=== PATIENT | male | born 1965 | race Caucasian/White ===

== ENCOUNTER → 2023-04-16 | Emergency (ER) | payer OTHER ==
[~2023-04-16] MED LIST: KETOROLAC 30 MG/ML INJ ONE; methocarbamoL 750 MG TAB ONE
--- OUTSIDE RECORDS SUMMARY | 2023-04-16 09:07 | XMS REPORT | Continuity of Care Document ---
Author Name Unknown Address [address] [facility] [address] [place] [address] [facility] thconnect Address [address] [facility] 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 Role Phone Carmen Avila Primary Care Physician DENISE HARDING Attending Clinician Unavaila Carmen Kapadia Attending Clinician [phone] Doctor Unassigned, [place] Attending Clinician U philipp LANDRUMWZenaida Attending Clinician [phone] Lab, Ang - Db Attending Clinician Unavailable CARMEN ARRIAGA Attending Clinician Unavailable Aurora Diaz Attending Clinician Denise Grace Attending Clinician AURORA RENEE Attending Clinician Unavailhunter Pascual, Adc Lab Main Attending Clinician UnavailVikash Allen MD Attending Clinician [phone] VIKASH MOONEY Attending Clinician Unavailable NICK RODRIGUEZ Attending Clinician Unavailable LIZZIE BECERRIL Attending Clinician Unavaila Ronny Pickett MD Attending Clinician [phone] SALBADOR NGUYEN Attending Clinician Unavail able Nurse, Adc Pob Immunization Attending Clinician Unavailable Salbador Nguyen DO Attending Clinician MERLYN HWANG Attending Clinician UnavailSHERLEY Nagel Attending Clinician Unavailable Sherley Cameron DO Attending Clinician [phone] Lab, Adc Fam Pob I Attending Clinician Unavailab Sarah Riley PA-C Attending Clinician [phone], Nancy [employer] Attending Clinician Chastity gerard Sun PHD, Erika Menchaca Attending Clinician ERIKA SUN Attending Clinician Unavailab MIRLANDE Lawson Attending Clinician Unavailable HENRIETTA COBB Attending Clinician Unavailable Henrietta Myers Attending Clinician [phone] VIKASH MOONEY Admitting Clinician Unavailable Payers Payer Name Policy Type Policy Number Effective Date Expirati on Date Source [facility] [id number] 2017 00:00:00 Problems Condition Name Condition Details Condition Category Status Onset Date Resolution Date Last Treatment Date Treating Clinician Comments Source CKD (chronic kidney disease), stage III CKD (chronic kidney disease), stage III Disease Active 05-28 00:00: 00 [facility] Acquired hypothyroi dism Acquired hypothyroi dism Disease Active 09-07 00:00: 00 [facility] Mixed hyperlipid emia Mixed hyperlipid emia Disease Active 09-07 00:00: 00 [facility] Elevated serum creatinine Elevated serum creatinine Disease Active 04-07 00:00: 00 [facility] Essential hypertensi on Essential hypertensi on Disease Active 04-01 00:00: 00 [facility] Allergies, Adverse Reactions, Alerts Allergy Name Allergy Type Status Severity Reaction(s) Onset Date Inactive Date Treating Clinician Comments Source MORPHINE DRUG INGREDI Active Unknown-Cmnt 10-29 00:00: 00 [facility] Morphine Propensi ty to adverse reaction s Active Unknown - See comments 10-29 00:00: 00 Pt reports it almost killed him when he was a baby [facility] Social History Social Habit Start Date Stop Date Quantity Comments Source Gender identity [facility] of tobacco use Snuff User [facility] Alcohol intake 2022-12-23 00:00:00 2022-12-23 00:00:00 .57 /d [facility] History of Social function 2022-11-17 00:00:00 2022-11-17 00:00:00 [facility] Exposure to SARS-CoV-2 (event) 2022-05-01 00:00:00 2022-05-11 07:01:00 Not sure [facility] Tobacco use and exposure 2021-10-16 00:00:00 2021-10-16 00:00:00 Former smokeless tobacco user [facility] Sex Assigned At 1965 00:00:00 1965 00:00:00 [facility] Smoking Status Start Date Stop Date Source Never smoked tobacco [facility] Medications Ordered Medication Name Filled Medication Name Start Date Stop Date Current Medication? Ordering Clinician Indication Dosage Frequency Signature (SIG) Comments Components Source amLODIPine 10 mg tablet 12-23 00:00: 00 Yes [id number] 10mg Take 1 tablet by mouth in the morning. [facility] levothyroxi ne 50 mcg tablet 12-23 00:00: 00 Yes [id number] 50ug Take 1 tablet by mouth every morning. [facility] hydroCHLORO thiazide 25 mg tablet 12-23 00:00: 00 Yes [id number] 25mg Take 1 tablet by mouth every morning. [facility] amLODIPine 10 mg tablet 12-23 00:00: 00 Yes [id number] 10mg Take 1 tablet by mouth in the morning. [facility] levothyroxi ne 50 mcg tablet 12-23 00:00: 00 Yes [id number] 50ug Take 1 tablet by mouth every morning. [facility] hydroCHLORO thiazide 25 mg tablet 12-23 00:00: 00 Yes [id number] 25mg Take 1 tablet by mouth every morning. [facility] amLODIPine 10 mg tablet 12-23 00:00: 00 Yes [id number] 10mg Take 1 tablet by mouth in the morning. [facility] levothyroxi ne 50 mcg tablet 12-23 00:00: 00 Yes [id number] 50ug Take 1 tablet by mouth every morning. [facility] hydroCHLORO thiazide 25 mg tablet 12-23 00:00: 00 Yes [id number] 25mg Take 1 tablet by mouth every morning. [facility] amLODIPine 10 mg tablet 12-23 00:00: 00 Yes [id number] 10mg Take 1 tablet by mouth in the morning. [facility] levothyroxi ne 50 mcg tablet 12-23 00:00: 00 Yes [id number] 50ug Take 1 tablet by mouth every morning. [facility] hydroCHLORO thiazide 25 mg tablet 12-23 00:00: 00 Yes [id number] 25mg Take 1 tablet by mouth every morning. [facility] amLODIPine 10 mg tablet 12-23 00:00: 00 Yes [id number] 10mg Take 1 tablet by mouth in the morning. [facility] levothyroxi ne 50 mcg tablet 12-23 00:00: 00 Yes [id number] 50ug Take 1 tablet by mouth every morning. [facility] hydroCHLORO thiazide 25 mg tablet 12-23 00:00: 00 Yes [id number] 25mg Take 1 tablet by mouth every morning. [facility] amLODIPine 10 mg tablet 12-23 00:00: 00 Yes [id number] 10mg Take 1 tablet by mouth in the morning. [facility] levothyroxi ne 50 mcg tablet 12-23 00:00: 00 Yes [id number] 50ug Take 1 tablet by mouth every morning. [facility] hydroCHLORO thiazide 25 mg tablet 12-23 00:00: 00 Yes [id number] 25mg Take 1 tablet by mouth every morning. [facility] amLODIPine 10 mg tablet 12-23 00:00: 00 Yes [id number] 10mg Take 1 tablet by mouth in the morning. [facility] levothyroxi ne 50 mcg tablet 12-23 00:00: 00 Yes [id number] 50ug Take 1 tablet by mouth every morning. [facility] hydroCHLORO thiazide 25 mg tablet 12-23 00:00: 00 Yes [id number] 25mg Take 1 tablet by mouth every morning. [facility] amLODIPine 10 mg tablet 12-23 00:00: 00 Yes [id number] 10mg Take 1 tablet by mouth in the morning. [facility] levothyroxi ne 50 mcg tablet 12-23 00:00: 00 Yes [id number] 50ug Take 1 tablet by mouth every morning. [facility] hydroCHLORO thiazide 25 mg tablet 12-23 00:00: 00 Yes [id number] 25mg Take 1 tablet by mouth every morning. [facility] amLODIPine 10 mg tablet 12-23 00:00: 00 Yes [id number] 10mg Take 1 tablet by mouth in the morning. [facility] levothyroxi ne 50 mcg tablet 12-23 00:00: 00 Yes [id number] 50ug Take 1 tablet by mouth every morning. [facility] hydroCHLORO thiazide 25 mg tablet 12-23 00:00: 00 Yes [id number] 25mg Take 1 tablet by mouth every morning. [facility] amLODIPine 10 mg tablet 11-23 00:00: 00 Yes [id number] 10mg Take 1 tablet by mouth in the morning. [facility] amLODIPine 10 mg tablet 11-23 00:00: 00 Yes [id number] 10mg Take 1 tablet by mouth in the morning. [facility] amLODIPine 10 mg tablet 11-23 00:00: 00 Yes [id number] 10mg Take 1 tablet by mouth in the morning. [facility] amLODIPine 10 mg tablet 11-23 00:00: 00 12-23 00:00 :00 No [id number] 10mg Take 1 tablet by mouth in the morning. [facility] amLODIPine 10 mg tablet 2023-0 8-28 00:00: 00 12-23 00:00 :00 No [id number] 10mg Take 1 tablet by mouth in the morning. [facility] hydroCHLORO thiazide 25 mg tablet 2022-0 8-18 00:00: 00 Yes [id number] 25mg TAKE 1 TABLET BY MOUTH EVERY MORNING [facility] hydroCHLORO thiazide 25 mg tablet 2022-0 8-18 00:00: 00 Yes [id number] 25mg TAKE 1 TABLET BY MOUTH EVERY MORNING [facility] hydroCHLORO thiazide 25 mg tablet 2022-0 8-18 00:00: 00 Yes [id number] 25mg TAKE 1 TABLET BY MOUTH EVERY MORNING [facility] hydroCHLORO thiazide 25 mg tablet 2022-0 8-18 00:00: 00 Yes [id number] 25mg TAKE 1 TABLET BY MOUTH EVERY MORNING [facility] hydroCHLORO thiazide 25 mg tablet 2022-0 8-18 00:00: 00 Yes [id number] 25mg TAKE 1 TABLET BY MOUTH EVERY MORNING [facility] hydroCHLORO thiazide 25 mg tablet 2022-0 8-18 00:00: 00 Yes [id number] 25mg TAKE 1 TABLET BY MOUTH EVERY MORNING [facility] hydroCHLORO thiazide 25 mg tablet 2022-0 8-18 00:00: 00 12-23 00:00 :00 No [id number] 25mg TAKE 1 TABLET BY MOUTH EVERY MORNING [facility] hydroCHLORO thiazide 25 mg tablet 2022-0 8-18 00:00: 00 12-23 00:00 :00 No [id number] 25mg TAKE 1 TABLET BY MOUTH EVERY MORNING [facility] AMLODIPINE 10 mg tablet 2022-0 7-16 00:00: 00 Yes [id number] 10mg TAKE 1 TABLET BY MOUTH IN THE MORNING. [facility] AMLODIPINE 10 mg tablet 2022-0 7-16 00:00: 00 Yes [id number] 10mg TAKE 1 TABLET BY MOUTH IN THE MORNING. [facility] AMLODIPINE 10 mg tablet 2022-0 7-16 00:00: 00 Yes [id number] 10mg TAKE 1 TABLET BY MOUTH IN THE MORNING. [facility] AMLODIPINE 10 mg tablet 2023-0 7-16 00:00: 00 Yes [id number] 10mg TAKE 1 TABLET BY MOUTH IN THE MORNING. [facility] AMLODIPINE 10 mg tablet 3-0 7-16 00:00: 00 Yes [id number] 10mg TAKE 1 TABLET BY MOUTH IN THE MORNING. [facility] AMLODIPINE 10 mg tablet 2022-0 7-16 00:00: 00 Yes [id number] 10mg TAKE 1 TABLET BY MOUTH IN THE MORNING. [facility] AMLODIPINE 10 mg tablet 2022-0 7-16 00:00: 00 28 00:00 :00 No [id number] 10mg TAKE 1 TABLET BY MOUTH IN THE MORNING. [facility] hydroCHLORO thiazide 25 mg tablet 2022-0 2-13 00:00: 00 Yes [id number] 25mg Take 1 tablet by mouth in the morning. [facility] hydroCHLORO thiazide 25 mg tablet 3-0 2-13 00:00: 00 Yes [id number] 25mg Take 1 tablet by mouth in the morning. [facility] hydroCHLORO thiazide 25 mg tablet 3-0 2-13 00:00: 00 Yes [id number] 25mg Take 1 tablet by mouth in the morning. [facility] hydroCHLORO thiazide 25 mg tablet 3-0 2-13 00:00: 00 Yes [id number] 25mg Take 1 tablet by mouth in the morning. [facility] hydroCHLORO thiazide 25 mg tablet 3-0 2-13 00:00: 00 Yes [id number] 25mg Take 1 tablet by mouth in the morning. [facility] hydroCHLORO thiazide 25 mg tablet 3-0 2-13 00:00: 00 Yes [id number] 25mg Take 1 tablet by mouth in the morning. [facility] hydroCHLORO thiazide 25 mg tablet 3-0 2-13 00:00: 00 Yes [id number] 25mg Take 1 tablet by mouth in the morning. [facility] hydroCHLORO thiazide 25 mg tablet 3-0 2-13 00:00: 00 Yes [id number] 25mg Take 1 tablet by mouth in the morning. [facility] hydroCHLORO thiazide 25 mg tablet 2023-0 2-13 00:00: 00 18 00:00 :00 No [id number] 25mg Take 1 tablet by mouth in the morning. [facility] amLODIPine 10 mg tablet 2021-03 00:00: 00 Yes [id number] 10mg Take 1 tablet by mouth in the morning. [facility] levothyroxi ne 50 mcg tablet 2021-03 00:00: 00 Yes [id number] 50ug Take 1 tablet by mouth every morning. [facility] Blood Pressure Monitor (BLOOD PRESSURE KIT) Kit 2021-03 00:00: 00 Yes [id number] Take BP 1-2 times daily and log. [facility] Omeprazole 20 mg tablet 2021-03 00:00: 00 Yes [id number] 20mg Take 1 tablet by mouth in the morning. [facility] amLODIPine 10 mg tablet 2021-03 00:00: 00 Yes [id number] 10mg Take 1 tablet by mouth in the morning. [facility] levothyroxi ne 50 mcg tablet 2021-03 00:00: 00 Yes [id number] 50ug Take 1 tablet by mouth every morning. [facility] Blood Pressure Monitor (BLOOD PRESSURE KIT) Kit 2021-03 00:00: 00 Yes [id number] Take BP 1-2 times daily and log. [facility] Omeprazole 20 mg tablet 2021-03 00:00: 00 Yes [id number] 20mg Take 1 tablet by mouth in the morning. [facility] amLODIPine 10 mg tablet 2021-03 00:00: 00 Yes [id number] 10mg Take 1 tablet by mouth in the morning. [facility] levothyroxi ne 50 mcg tablet 2021-03 00:00: 00 Yes [id number] 50ug Take 1 tablet by mouth every morning. [facility] Blood Pressure Monitor (BLOOD PRESSURE KIT) Kit 2021-03 00:00: 00 Yes [id number] Take BP 1-2 times daily and log. [facility] Omeprazole 20 mg tablet 2021-03 00:00: 00 Yes [id number] 20mg Take 1 tablet by mouth in the morning. [facility] amLODIPine 10 mg tablet 2021-03 00:00: 00 Yes [id number] 10mg Take 1 tablet by mouth in the morning. [facility] levothyroxi ne 50 mcg tablet 2021-03 00:00: 00 Yes [id number] 50ug Take 1 tablet by mouth every morning. [facility] Blood Pressure Monitor (BLOOD PRESSURE KIT) Kit 2021-03 00:00: 00 Yes [id number] Take BP 1-2 times daily and log. [facility] Omeprazole 20 mg tablet 2021-03 00:00: 00 Yes [id number] 20mg Take 1 tablet by mouth in the morning. [facility] amLODIPine 10 mg tablet 2021-03 00:00: 00 Yes [id number] 10mg Take 1 tablet by mouth in the morning. [facility] levothyroxi ne 50 mcg tablet 2021-03 00:00: 00 Yes [id number] 50ug Take 1 tablet by mouth every morning. [facility] Blood Pressure Monitor (BLOOD PRESSURE KIT) Kit 2021-03 00:00: 00 Yes [id number] Take BP 1-2 times daily and log. [facility] Omeprazole 20 mg tablet 2021-03 00:00: 00 Yes [id number] 20mg Take 1 tablet by mouth in the morning. [facility] amLODIPine 10 mg tablet 2021-03 00:00: 00 Yes [id number] 10mg Take 1 tablet by mouth in the morning. [facility] levothyroxi ne 50 mcg tablet 2021-03 00:00: 00 Yes [id number] 50ug Take 1 tablet by mouth every morning. [facility] Blood Pressure Monitor (BLOOD PRESSURE KIT) Kit 2021-03 00:00: 00 Yes [id number] Take BP 1-2 times daily and log. [facility] Omeprazole 20 mg tablet 2021-03 00:00: 00 Yes [id number] 20mg Take 1 tablet by mouth in the morning. [facility] amLODIPine 10 mg tablet 2021-03 00:00: 00 Yes [id number] 10mg Take 1 tablet by mouth in the morning. [facility] levothyroxi ne 50 mcg tablet 2021-03 00:00: 00 Yes [id number] 50ug Take 1 tablet by mouth every morning. [facility] Blood Pressure Monitor (BLOOD PRESSURE KIT) Kit 2021-03 00:00: 00 Yes [id number] Take BP 1-2 times daily and log. [facility] Omeprazole 20 mg tablet 2021-03 00:00: 00 Yes [id number] 20mg Take 1 tablet by mouth in the morning. [facility] amLODIPine 10 mg tablet 2021-03 00:00: 00 Yes [id number] 10mg Take 1 tablet by mouth in the morning. [facility] levothyroxi ne 50 mcg tablet 2021-03 00:00: 00 Yes [id number] 50ug Take 1 tablet by mouth every morning. [facility] Blood Pressure Monitor (BLOOD PRESSURE KIT) Kit 2021-03 00:00: 00 Yes [id number] Take BP 1-2 times daily and log. [facility] Omeprazole 20 mg tablet 2021-03 00:00: 00 Yes [id number] 20mg Take 1 tablet by mouth in the morning. [facility] amLODIPine 10 mg tablet 2021-03 00:00: 00 Yes [id number] 10mg Take 1 tablet by mouth in the morning. [facility] levothyroxi ne 50 mcg tablet 2021-03 00:00: 00 Yes [id number] 50ug Take 1 tablet by mouth every morning. [facility] Blood Pressure Monitor (BLOOD PRESSURE KIT) Kit 2021-03 00:00: 00 Yes [id number] Take BP 1-2 times daily and log. [facility] Omeprazole 20 mg tablet 2021-03 00:00: 00 Yes [id number] 20mg Take 1 tablet by mouth in the morning. [facility] amLODIPine 10 mg tablet 2021-03 00:00: 00 Yes [id number] 10mg Take 1 tablet by mouth in the morning. [facility] levothyroxi ne 50 mcg tablet 2021-03 00:00: 00 Yes [id number] 50ug Take 1 tablet by mouth every morning. [facility] Blood Pressure Monitor (BLOOD PRESSURE KIT) Kit 2021-03 00:00: 00 Yes [id number] Take BP 1-2 times daily and log. [facility] Omeprazole 20 mg tablet 2021-03 00:00: 00 Yes [id number] 20mg Take 1 tablet by mouth in the morning. [facility] amLODIPine 10 mg tablet 2021-03 00:00: 00 Yes [id number] 10mg Take 1 tablet by mouth in the morning. [facility] levothyroxi ne 50 mcg tablet 2021-03 00:00: 00 Yes [id number] 50ug Take 1 tablet by mouth every morning. [facility] Blood Pressure Monitor (BLOOD PRESSURE KIT) Kit 2021-03 00:00: 00 Yes [id number] Take BP 1-2 times daily and log. [facility] Omeprazole 20 mg tablet 2021-03 00:00: 00 Yes [id number] 20mg Take 1 tablet by mouth in the morning. [facility] levothyroxi ne 50 mcg tablet 2021-03 00:00: 00 Yes [id number] 50ug Take 1 tablet by mouth every morning. [facility] Blood Pressure Monitor (BLOOD PRESSURE KIT) Kit 2021-03 00:00: 00 Yes [id number] Take BP 1-2 times daily and log. [facility] Omeprazole 20 mg tablet 2021-03 00:00: 00 Yes [id number] 20mg Take 1 tablet by mouth in the morning. [facility] levothyroxi ne 50 mcg tablet 2021-03 00:00: 00 Yes [id number] 50ug Take 1 tablet by mouth every morning. [facility] Blood Pressure Monitor (BLOOD PRESSURE KIT) Kit 2021-03 00:00: 00 Yes [id number] Take BP 1-2 times daily and log. [facility] Omeprazole 20 mg tablet 2021-03 00:00: 00 Yes [id number] 20mg Take 1 tablet by mouth in the morning. [facility] levothyroxi ne 50 mcg tablet 2021-03 00:00: 00 Yes [id number] 50ug Take 1 tablet by mouth every morning. [facility] Blood Pressure Monitor (BLOOD PRESSURE KIT) Kit 2021-03 00:00: 00 Yes [id number] Take BP 1-2 times daily and log. [facility] Omeprazole 20 mg tablet 2021-03 00:00: 00 Yes [id number] 20mg Take 1 tablet by mouth in the morning. [facility] levothyroxi ne 50 mcg tablet 2021-03 00:00: 00 Yes [id number] 50ug Take 1 tablet by mouth every morning. [facility] Blood Pressure Monitor (BLOOD PRESSURE KIT) Kit 2021-03 00:00: 00 Yes [id number] Take BP 1-2 times daily and log. [facility] Omeprazole 20 mg tablet 2021-03 00:00: 00 Yes [id number] 20mg Take 1 tablet by mouth in the morning. [facility] levothyroxi ne 50 mcg tablet 2021-03 00:00: 00 Yes [id number] 50ug Take 1 tablet by mouth every morning. [facility] Blood Pressure Monitor (BLOOD PRESSURE KIT) Kit 2021-03 00:00: 00 Yes [id number] Take BP 1-2 times daily and log. [facility] Omeprazole 20 mg tablet 2021-03 00:00: 00 Yes [id number] 20mg Take 1 tablet by mouth in the morning. [facility] levothyroxi ne 50 mcg tablet 2021-03 00:00: 00 Yes [id number] 50ug Take 1 tablet by mouth every morning. [facility] Blood Pressure Monitor (BLOOD PRESSURE KIT) Kit 2021-03 00:00: 00 Yes [id number] Take BP 1-2 times daily and log. [facility] Omeprazole 20 mg tablet 2021-03 00:00: 00 Yes [id number] 20mg Take 1 tablet by mouth in the morning. [facility] levothyroxi ne 50 mcg tablet 2021-03 00:00: 00 Yes [id number] 50ug Take 1 tablet by mouth every morning. [facility] Blood Pressure Monitor (BLOOD PRESSURE KIT) Kit 2021-03 00:00: 00 Yes [id number] Take BP 1-2 times daily and log. [facility] Omeprazole 20 mg tablet 2021-03 00:00: 00 Yes [id number] 20mg Take 1 tablet by mouth in the morning. [facility] levothyroxi ne 50 mcg tablet 2021-03 00:00: 00 Yes [id number] 50ug Take 1 tablet by mouth every morning. [facility] Blood Pressure Monitor (BLOOD PRESSURE KIT) Kit 2021-03 00:00: 00 Yes [id number] Take BP 1-2 times daily and log. [facility] Omeprazole 20 mg tablet 2021-03 00:00: 00 Yes [id number] 20mg Take 1 tablet by mouth in the morning. [facility] levothyroxi ne 50 mcg tablet 2021-03 00:00: 00 Yes [id number] 50ug Take 1 tablet by mouth every morning. [facility] Blood Pressure Monitor (BLOOD PRESSURE KIT) Kit 2021-03 00:00: 00 Yes [id number] Take BP 1-2 times daily and log. [facility] Omeprazole 20 mg tablet 2021-03 00:00: 00 Yes [id number] 20mg Take 1 tablet by mouth in the morning. [facility] Blood Pressure Monitor (BLOOD PRESSURE KIT) Kit 2021-03 00:00: 00 Yes [id number] Take BP 1-2 times daily and log. [facility] Omeprazole 20 mg tablet 2021-03 00:00: 00 Yes [id number] 20mg Take 1 tablet by mouth in the morning. [facility] Blood Pressure Monitor (BLOOD PRESSURE KIT) Kit 2021-03 00:00: 00 Yes [id number] Take BP 1-2 times daily and log. [facility] Omeprazole 20 mg tablet 2021-03 00:00: 00 Yes [id number] 20mg Take 1 tablet by mouth in the morning. [facility] Blood Pressure Monitor (BLOOD PRESSURE KIT) Kit 2021-03 00:00: 00 Yes [id number] Take BP 1-2 times daily and log. [facility] Omeprazole 20 mg tablet 2021-03 00:00: 00 Yes [id number] 20mg Take 1 tablet by mouth in the morning. [facility] Blood Pressure Monitor (BLOOD PRESSURE KIT) Kit 2021-03 00:00: 00 Yes [id number] Take BP 1-2 times daily and log. [facility] Omeprazole 20 mg tablet 2021-03 00:00: 00 Yes [id number] 20mg Take 1 tablet by mouth in the morning. [facility] Blood Pressure Monitor (BLOOD PRESSURE KIT) Kit 2021-03 00:00: 00 Yes [id number] Take BP 1-2 times daily and log. [facility] Omeprazole 20 mg tablet 2021-03 00:00: 00 Yes [id number] 20mg Take 1 tablet by mouth in the morning. [facility] Blood Pressure Monitor (BLOOD PRESSURE KIT) Kit 2021-03 00:00: 00 Yes [id number] Take BP 1-2 times daily and log. [facility] Omeprazole 20 mg tablet 2021-03 00:00: 00 Yes [id number] 20mg Take 1 tablet by mouth in the morning. [facility] Blood Pressure Monitor (BLOOD PRESSURE KIT) Kit 2021-03 00:00: 00 Yes [id number] Take BP 1-2 times daily and log. [facility] Omeprazole 20 mg tablet 2021-03 00:00: 00 Yes [id number] 20mg Take 1 tablet by mouth in the morning. [facility] Blood Pressure Monitor (BLOOD PRESSURE KIT) Kit 2021-03 00:00: 00 Yes [id number] Take BP 1-2 times daily and log. [facility] Omeprazole 20 mg tablet 2021-03 00:00: 00 Yes [id number] 20mg Take 1 tablet by mouth in the morning. [facility] Blood Pressure Monitor (BLOOD PRESSURE KIT) Kit 2021-03 00:00: 00 Yes [id number] Take BP 1-2 times daily and log. [facility] Omeprazole 20 mg tablet 2021-03 00:00: 00 Yes [id number] 20mg Take 1 tablet by mouth in the morning. [facility] Blood Pressure Monitor (BLOOD PRESSURE KIT) Kit 2021-03 00:00: 00 Yes [id number] Take BP 1-2 times daily and log. [facility] Omeprazole 20 mg tablet 2021-03 00:00: 00 Yes [id number] 20mg Take 1 tablet by mouth in the morning. [facility] Blood Pressure Monitor (BLOOD PRESSURE KIT) Kit 2021-03 00:00: 00 Yes [id number] Take BP 1-2 times daily and log. [facility] Omeprazole 20 mg tablet 2021-03 00:00: 00 Yes [id number] 20mg Take 1 tablet by mouth in the morning. [facility] Blood Pressure Monitor (BLOOD PRESSURE KIT) Kit 2021-03 00:00: 00 Yes [id number] Take BP 1-2 times daily and log. [facility] Omeprazole 20 mg tablet 2021-03 00:00: 00 Yes [id number] 20mg Take 1 tablet by mouth in the morning. [facility] levothyroxi ne 50 mcg tablet 2021-03 00:00: 00 12-23 00:00 :00 No [id number] 50ug Take 1 tablet by mouth every morning. [facility] levothyroxi ne 50 mcg tablet 2021-03 00:00: 00 12-23 00:00 :00 No [id number] 50ug Take 1 tablet by mouth every morning. [facility] amLODIPine 10 mg tablet 2021-03 00:00: 00 10-11 00:00 :00 No [id number] 10mg Take 1 tablet by mouth in the morning. [facility] amLODIPine 10 mg tablet 2021-03 00:00: 00 10-11 00:00 :00 No [id number] 10mg Take 1 tablet by mouth in the morning. [facility] amLODIPine 10 mg tablet 2021-03 00:00: 00 10-11 00:00 :00 No [id number] 10mg Take 1 tablet by mouth in the morning. [facility] levothyroxi ne 50 mcg tablet 10-16 00:00: 00 Yes [id number] 50ug Take 1 tablet by mouth every morning. [facility] amLODIPine 10 mg tablet 10-16 00:00: 00 Yes [id number] 10mg Take 1 tablet by mouth in the morning. [facility] levothyroxi ne 50 mcg tablet 10-16 00:00: 00 Yes [id number] 50ug Take 1 tablet by mouth every morning. [facility] amLODIPine 10 mg tablet 10-16 00:00: 00 Yes [id number] 10mg Take 1 tablet by mouth in the morning. [facility] levothyroxi ne 50 mcg tablet 10-16 00:00: 00 02-12 00:00 :00 No [id number] 50ug Take 1 tablet by mouth every morning. [facility] amLODIPine 10 mg tablet 10-16 00:00: 00 02-12 00:00 :00 No [id number] 10mg Take 1 tablet by mouth in the morning. [facility] levothyroxi ne 50 mcg tablet 10-16 00:00: 00 02-12 00:00 :00 No [id number] 50ug Take 1 tablet by mouth every morning. [facility] amLODIPine 10 mg tablet 2021-0 7-21 00:00: 00 02-12 00:00 :00 No [id number] 10mg Take 1 tablet by mouth in the morning. [facility] Immunizations Ordered Immunization Name Filled Immunization Name Date Status Comments Source SARS-COV-2 COVID-19 PFIZER VACCINE 2021-02-28 00:00:00 Completed [facility] SARS-COV-2 COVID-19 PFIZER VACCINE 2021-02-28 00:00:00 Completed [facility] SARS-COV-2 COVID-19 PFIZER VACCINE 2021-02-28 00:00:00 Completed [facility] SARS-COV-2 COVID-19 PFIZER VACCINE 2021-02-28 00:00:00 Completed [facility] SARS-COV-2 COVID-19 PFIZER VACCINE 2021-02-28 00:00:00 Completed [facility] SARS-COV-2 COVID-19 PFIZER VACCINE 2021-02-28 00:00:00 Completed [facility] SARS-COV-2 COVID-19 PFIZER VACCINE 2021-02-28 00:00:00 Completed [facility] SARS-COV-2 COVID-19 PFIZER VACCINE 2021-02-28 00:00:00 Completed [facility] SARS-COV-2 COVID-19 PFIZER VACCINE 2021-02-28 00:00:00 Completed [facility] SARS-COV-2 COVID-19 PFIZER VACCINE 2021-02-28 00:00:00 Completed [facility] SARS-COV-2 COVID-19 PFIZER VACCINE 2021-02-28 00:00:00 Completed [facility] SARS-COV-2 COVID-19 PFIZER VACCINE 2021-02-28 00:00:00 Completed [facility] SARS-COV-2 COVID-19 PFIZER VACCINE 2021-02-28 00:00:00 Completed [facility] SARS-COV-2 COVID-19 PFIZER VACCINE 2021-02-28 00:00:00 Completed [facility] SARS-COV-2 COVID-19 PFIZER VACCINE 2021-02-28 00:00:00 Completed [facility] SARS-COV-2 COVID-19 PFIZER VACCINE 2021-02-28 00:00:00 Completed [facility] SARS-COV-2 COVID-19 PFIZER VACCINE 2021-02-28 00:00:00 Completed [facility] SARS-COV-2 COVID-19 PFIZER VACCINE 2021-02-28 00:00:00 Completed [facility] SARS-COV-2 COVID-19 PFIZER VACCINE 2021-02-28 00:00:00 Completed [facility] SARS-COV-2 COVID-19 PFIZER VACCINE 2021-02-28 00:00:00 Completed [facility] SARS-COV-2 COVID-19 PFIZER VACCINE 2021-02-28 00:00:00 Completed [facility] SARS-COV-2 COVID-19 PFIZER VACCINE 2021-02-28 00:00:00 Completed [facility] SARS-COV-2 COVID-19 PFIZER VACCINE 2020-07-05 00:00:00 Completed [facility] SARS-COV-2 COVID-19 PFIZER VACCINE 2020-07-05 00:00:00 Completed [facility] SARS-COV-2 COVID-19 PFIZER VACCINE 2020-07-05 00:00:00 Completed [facility] SARS-COV-2 COVID-19 PFIZER VACCINE 2020-07-05 00:00:00 Completed [facility] SARS-COV-2 COVID-19 PFIZER VACCINE 2020-07-05 00:00:00 Completed [facility] SARS-COV-2 COVID-19 PFIZER VACCINE 2020-07-05 00:00:00 Completed [facility] SARS-COV-2 COVID-19 PFIZER VACCINE 2020-07-05 00:00:00 Completed [facility] SARS-COV-2 COVID-19 PFIZER VACCINE 2020-07-05 00:00:00 Completed [facility] SARS-COV-2 COVID-19 PFIZER VACCINE 2020-07-05 00:00:00 Completed [facility] SARS-COV-2 COVID-19 PFIZER VACCINE 2020-07-05 00:00:00 Completed [facility] SARS-COV-2 COVID-19 PFIZER VACCINE 2020-07-05 00:00:00 Completed [facility] SARS-COV-2 COVID-19 PFIZER VACCINE 2020-07-05 00:00:00 Completed [facility] SARS-COV-2 COVID-19 PFIZER VACCINE 2020-07-05 00:00:00 Completed [facility] SARS-COV-2 COVID-19 PFIZER VACCINE 2020-07-05 00:00:00 Completed [facility] SARS-COV-2 COVID-19 PFIZER VACCINE 2020-07-05 00:00:00 Completed [facility] SARS-COV-2 COVID-19 PFIZER VACCINE 2020-07-05 00:00:00 Completed [facility] SARS-COV-2 COVID-19 PFIZER VACCINE 2020-07-05 00:00:00 Completed [facility] SARS-COV-2 COVID-19 PFIZER VACCINE 2020-07-05 00:00:00 Completed [facility] SARS-COV-2 COVID-19 PFIZER VACCINE 2020-07-05 00:00:00 Completed [facility] SARS-COV-2 COVID-19 PFIZER VACCINE 2020-07-05 00:00:00 Completed [facility] SARS-COV-2 COVID-19 PFIZER VACCINE 2020-07-05 00:00:00 Completed [facility] SARS-COV-2 COVID-19 PFIZER VACCINE 2020-07-05 00:00:00 Completed [facility] SARS-COV-2 COVID-19 PFIZER VACCINE 2020-06-14 00:00:00 Completed [facility] SARS-COV-2 COVID-19 PFIZER VACCINE 2020-06-14 00:00:00 Completed [facility] SARS-COV-2 COVID-19 PFIZER VACCINE 2020-06-14 00:00:00 Completed [facility] SARS-COV-2 COVID-19 PFIZER VACCINE 2020-06-14 00:00:00 Completed [facility] SARS-COV-2 COVID-19 PFIZER VACCINE 2020-06-14 00:00:00 Completed [facility] SARS-COV-2 COVID-19 PFIZER VACCINE 2020-06-14 00:00:00 Completed [facility] SARS-COV-2 COVID-19 PFIZER VACCINE 2020-06-14 00:00:00 Completed [facility] SARS-COV-2 COVID-19 PFIZER VACCINE 2020-06-14 00:00:00 Completed [facility] SARS-COV-2 COVID-19 PFIZER VACCINE 2020-06-14 00:00:00 Completed [facility] SARS-COV-2 COVID-19 PFIZER VACCINE 2020-06-14 00:00:00 Completed [facility] SARS-COV-2 COVID-19 PFIZER VACCINE 2020-06-14 00:00:00 Completed [facility] SARS-COV-2 COVID-19 PFIZER VACCINE 2020-06-14 00:00:00 Completed [facility] SARS-COV-2 COVID-19 PFIZER VACCINE 2020-06-14 00:00:00 Completed [facility] SARS-COV-2 COVID-19 PFIZER VACCINE 2020-06-14 00:00:00 Completed [facility] SARS-COV-2 COVID-19 PFIZER VACCINE 2020-06-14 00:00:00 Completed [facility] SARS-COV-2 COVID-19 PFIZER VACCINE 2020-06-14 00:00:00 Completed [facility] SARS-COV-2 COVID-19 PFIZER VACCINE 2020-06-14 00:00:00 Completed [facility] SARS-COV-2 COVID-19 PFIZER VACCINE 2020-06-14 00:00:00 Completed [facility] SARS-COV-2 COVID-19 PFIZER VACCINE 2020-06-14 00:00:00 Completed [facility] SARS-COV-2 COVID-19 PFIZER VACCINE 2020-06-14 00:00:00 Completed [facility] SARS-COV-2 COVID-19 PFIZER VACCINE 2020-06-14 00:00:00 Completed [facility] SARS-COV-2 COVID-19 PFIZER VACCINE 2020-06-14 00:00:00 Completed [facility] TDAP 2018-09-06 00:00:00 Completed [facility] TDAP 2018-09-06 00:00:00 Completed [facility] TDAP 2018-09-06 00:00:00 Completed [facility] TDAP 2018-09-06 00:00:00 Completed [facility] TDAP 2018-09-06 00:00:00 Completed [facility] TDAP 2018-09-06 00:00:00 Completed [facility] TDAP 2018-09-06 00:00:00 Completed [facility] TDAP 2018-09-06 00:00:00 Completed [facility] TDAP 2018-09-06 00:00:00 Completed [facility] TDAP 2018-09-06 00:00:00 Completed [facility] TDAP 2018-09-06 00:00:00 Completed [facility] TDAP 2018-09-06 00:00:00 Completed [facility] TDAP 2018-09-06 00:00:00 Completed [facility] TDAP 2018-09-06 00:00:00 Completed [facility] TDAP 2018-09-06 00:00:00 Completed [facility] TDAP 2018-09-06 00:00:00 Completed [facility] TDAP 2018-09-06 00:00:00 Completed [facility] TDAP 2018-09-06 00:00:00 Completed [facility] TDAP 2018-09-06 00:00:00 Completed [facility] TDAP 2018-09-06 00:00:00 Completed [facility] TDAP 2018-09-06 00:00:00 Completed [facility] TDAP 2018-09-06 00:00:00 Completed [facility] TDAP Unknown Completed [facility] SARS-COV-2 COVID-19 PFIZER VACCINE Unknown Completed [facility] SARS-COV-2 COVID-19 PFIZER VACCINE Unknown Completed [facility] SARS-COV-2 COVID-19 PFIZER VACCINE Unknown Completed [facility] TDAP Unknown Completed [facility] SARS-COV-2 COVID-19 PFIZER VACCINE Unknown Completed [facility] SARS-COV-2 COVID-19 PFIZER VACCINE Unknown Completed [facility] SARS-COV-2 COVID-19 PFIZER VACCINE Unknown Completed [facility] TDAP Unknown Completed [facility] SARS-COV-2 COVID-19 PFIZER VACCINE Unknown Completed [facility] SARS-COV-2 COVID-19 PFIZER VACCINE Unknown Completed [facility] SARS-COV-2 COVID-19 PFIZER VACCINE Unknown Completed [facility] TDAP Unknown Completed [facility] SARS-COV-2 COVID-19 PFIZER VACCINE Unknown Completed [facility] SARS-COV-2 COVID-19 PFIZER VACCINE Unknown Completed [facility] SARS-COV-2 COVID-19 PFIZER VACCINE Unknown Completed [facility] TDAP Unknown Completed [facility] SARS-COV-2 COVID-19 PFIZER VACCINE Unknown Completed [facility] SARS-COV-2 COVID-19 PFIZER VACCINE Unknown Completed [facility] SARS-COV-2 COVID-19 PFIZER VACCINE Unknown Completed [facility] TDAP Unknown Completed [facility] SARS-COV-2 COVID-19 PFIZER VACCINE Unknown Completed [facility] SARS-COV-2 COVID-19 PFIZER VACCINE Unknown Completed [facility] SARS-COV-2 COVID-19 PFIZER VACCINE Unknown Completed [facility] TDAP Unknown Completed [facility] SARS-COV-2 COVID-19 PFIZER VACCINE Unknown Completed [facility] SARS-COV-2 COVID-19 PFIZER VACCINE Unknown Completed [facility] SARS-COV-2 COVID-19 PFIZER VACCINE Unknown Completed [facility] TDAP Unknown Completed [facility] SARS-COV-2 COVID-19 PFIZER VACCINE Unknown Completed [facility] SARS-COV-2 COVID-19 PFIZER VACCINE Unknown Completed [facility] SARS-COV-2 COVID-19 PFIZER VACCINE Unknown Completed [facility] TDAP Unknown Completed [facility] SARS-COV-2 COVID-19 PFIZER VACCINE Unknown Completed [facility] SARS-COV-2 COVID-19 PFIZER VACCINE Unknown Completed [facility] SARS-COV-2 COVID-19 PFIZER VACCINE Unknown Completed [facility] TDAP Unknown Completed [facility] SARS-COV-2 COVID-19 PFIZER VACCINE Unknown Completed [facility] SARS-COV-2 COVID-19 PFIZER VACCINE Unknown Completed [facility] SARS-COV-2 COVID-19 PFIZER VACCINE Unknown Completed [facility] TDAP Unknown Completed [facility] SARS-COV-2 COVID-19 PFIZER VACCINE Unknown Completed [facility] SARS-COV-2 COVID-19 PFIZER VACCINE Unknown Completed [facility] SARS-COV-2 COVID-19 PFIZER VACCINE Unknown Completed [facility] TDAP Unknown Completed [facility] SARS-COV-2 COVID-19 PFIZER VACCINE Unknown Completed [facility] SARS-COV-2 COVID-19 PFIZER VACCINE Unknown Completed [facility] SARS-COV-2 COVID-19 PFIZER VACCINE Unknown Completed [facility] TDAP Unknown Completed [facility] SARS-COV-2 COVID-19 PFIZER VACCINE Unknown Completed [facility] SARS-COV-2 COVID-19 PFIZER VACCINE Unknown Completed [facility] SARS-COV-2 COVID-19 PFIZER VACCINE Unknown Completed [facility] TDAP Unknown Completed [facility] SARS-COV-2 COVID-19 PFIZER VACCINE Unknown Completed [facility] SARS-COV-2 COVID-19 PFIZER VACCINE Unknown Completed [facility] SARS-COV-2 COVID-19 PFIZER VACCINE Unknown Completed [facility] Vital Signs Vital Name Observation Time Observation Value Comments S ource Systolic blood pressure 2022-12-23 15:13:00 124 mm[Hg] [facility] Diastolic blood pressure 2022-12-23 15:13:00 80 mm[Hg] [facility] Heart rate 2022-12-23 15:05:00 62 /[facility] Body temperature 2022-12-23 15:05:00 36.72 Cynthia [facility] Body height 2022-12-23 15:05:00 172.7 cm [facility] Body weight 2022-12-23 15:05:00 82.419 kg [facility] BMI 2022-12-23 15:05:00 27.63 kg/m2 [facility] Oxygen saturation in Arterial blood by Pulse oximetry 2022-12-23 15:05:00 97 /min [facility] Systolic blood pressure 2022-11-17 14:48:00 159 mm[Hg] [facility] Diastolic blood pressure 2022-11-17 14:48:00 93 mm[Hg] [facility] Heart rate 2022-11-17 14:47:00 79 /min [facility] Body temperature 2022-11-17 14:47:00 36.17 Cynthia [facility] Respiratory rate 2022-11-17 14:47:00 18 /min [facility] Body weight 2022-11-17 14:47:00 80.559 kg [facility] BMI 2022-11-17 14:47:00 27.00 kg/m2 [facility] Oxygen saturation in Arterial blood by Pulse oximetry 2022-11-17 14:47:00 97 /min [facility] Systolic blood pressure 2022-05-11 15:34:00 148 mm[Hg] [facility] Diastolic blood pressure 2022-05-11 15:34:00 94 mm[Hg] [facility] Heart rate 2022-05-11 15:34:00 64 /min [facility] Body temperature 2022-05-11 15:32:00 36.78 Cynthia [facility] Body height 2022-05-11 15:32:00 172.7 cm [facility] Body weight 2022-05-11 15:32:00 83.462 kg [facility] BMI 2022-05-11 15:32:00 27.98 kg/m2 [facility] Oxygen saturation in Arterial blood by Pulse oximetry 2022-05-11 15:32:00 99 /min [facility] Systolic blood pressure 2022-02-12 16:19:00 128 mm[Hg] [facility] Diastolic blood pressure 2022-02-12 16:19:00 80 mm[Hg] [facility] Heart rate 2022-02-12 13:09:00 68 /min [facility] Body height 2022-02-12 13:09:00 172.7 cm [facility] Body weight 2022-02-12 13:09:00 81.92 kg [facility] BMI 2022-02-12 13:09:00 27.46 kg/m2 [facility] Oxygen saturation in Arterial blood by Pulse oximetry 2022-02-12 13:09:00 98 /min [facility] Systolic blood pressure 2021-11-12 16:00:00 150 mm[Hg] [facility] Diastolic blood pressure 2021-11-12 16:00:00 93 mm[Hg] [facility] Heart rate 2021-11-12 16:00:00 62 /min [facility] Body temperature 2021-11-12 14:42:00 37.22 Cynthia [facility] Respiratory rate 2021-11-12 14:42:00 16 /min [facility] Body height 2021-11-12 14:42:00 172.7 cm [facility] Body weight 2021-11-12 14:42:00 84.188 kg [facility] BMI 2021-11-12 14:42:00 28.22 kg/m2 [facility] Oxygen saturation in Arterial blood by Pulse oximetry 2021-11-12 14:42:00 99 /min [facility] Procedures Procedure Date / Time Performed Performing Clinicia n Source POCT URINALYSIS AUTO 2022-11-17 15:13:00 Roseanna Harding [facility] URINALYSIS 2022-05-11 15:39:00 Aurora Renee [facility] PROTEIN CREAT RATIO URINE RANDOM 2022-05-11 15:39:00 Aurora Renee [facility] Encounters Start Date/Time End Date/Time Encounter Type Admission Type Attending Clinicians Care Facility Care Department Encounter ID Source 2023-11-19 08:45:00 2023-11-19 08:45:00 Outpatient R DENISE HARDING [facility] [id number] [facility] 2023-02-20 00:00:00 2023-02-20 00:00:00 [facility] .840.114 350.1.13.10 4.2.7.2.686 [id number] [facility] 2023-02-04 00:00:00 2023-02-04 00:00:00 Patient Secure Msg Doctor Unassigned, Mariposa [facility] ..114 350.1.13.10 4.2.7.2.686 [id number] [facility] 2022-12-31 00:00:00 2022-12-31 00:00:00 Patient Secure Msg Doctor Unassigned, Marip[place] [facility] IJEOMA ORTIZ?[facility] [id number] 350.1.13.10 4.2.7.2.686 [id number] [facility] 2022-12-28 00:00:00 2022-12-28 00:00:00 Patient Outreach Zenaida [facility]uel[facility] [id number] 350.1.13.10 4.2.7.2.686 [id number] [facility] 2022-12-24 00:00:00 2022-12-24 00:00:00 [facility]ill [facility] 1.2840.114 350.1.13.10 4.2.7.2.686 [id number] [facility] 2022-12-24 00:00:00 2022-12-24 00:00:00 Telephone [facility] 1.2840.114 350.1.13.10 4.2.7.2.686 [id number] [facility] 2022-12-23 11:30:00 2022-12-23 11:45:00 Laser/Electro Optics Technician Visit Lab, Ang - Db Carmen Arriaga Donte [facility] 1.2840.114 350.1.13.10 4.2.7.2.686 [id number] [facility] 2022-12-23 11:30:00 2022-12-23 11:30:00 Outpatient R CARMEN ARRIAGA [facility] [id number] [facility] 2022-12-23 10:30:00 2022-12-23 10:48:09 Office Visit Carmen Arriaga [facility] [id number] 350.1.13.10 4.2.7.2.686 [id number] [facility] 2022-11-24 00:00:00 2022-11-24 00:00:00 Telephone Aurora Renee [facility] 1.840.114 350.1.13.10 4.2.7.2.686 [id number] [facility] 2022-11-23 00:00:00 2022-11-23 00:00:00 Refill Carmen Arriaga [facility] [id number] 350.1.13.10 4.2.7.2.686 [id number] [facility] 2022-11-23 00:00:00 2022-11-23 00:00:00 Refill Carmen Arriaga [facility] [id number] 350.1.13.10 4.2.7.2.686 [id number] [facility] 2022-11-17 11:00:00 2022-11-17 11:00:00 [facility] 1.2.840.114 350.1.13.10 4.2.7.2.686 [id number] [facility] 2022-11-17 11:00:00 2022-11-17 10:10:01 Outpatient R MARTA HARDINGTNEY [facility] [id number] [facility] 2022-11-12 00:00:00 2022-11-12 00:00:00 Refill Aurora Renee [facility] 1..114 350.1.13.10 4.2.7.2.686 [id number] [facility] 2022-10-21 10:30:00 2022-10-21 10:30:00 Outpatient R DENISE HARDING [facility] [id number] [facility] 2022-10-12 00:00:00 2022-10-12 00:00:00 Patient Secure Msg Doctor Unassigned, [place]ip[place] [facility] 1.84.114 350.1.13.10 4.2.7.2.686 [id number] [facility] 2022-10-08 00:00:00 2022-10-08 00:00:00 Refill Carmen Arriaga [facility] [id number] 350.1.13.10 4.2.7.2.686 [id number] [facility] 2022-08-10 09:30:00 2022-08-10 09:30:00 Outpatient R AURORA RENEE [facility] [id number] [facility] 2022-07-31 00:00:00 2022-07-31 00:00:00 Telephone Aurora Renee [facility] 1..114 350.1.13.10 4.2.7.2.686 [id number] [facility] 2022-07-15 00:00:00 2022-07-15 00:00:00 Telephone Aurora Renee [facility] 1..114 350.1.13.10 4.2.7.2.686 [id number] [facility] 2022-07-13 00:00:00 2022-07-13 00:00:00 [facility] 1.114 350.1.13.10 4.2.7.2.686 [id number] [facility] 2022-05-27 10:00:00 2022-05-27 10:00:00 Outpatient R [facility] [id number] [facility] 2022-05-18 00:00:00 2022-05-18 00:00:00 Patient [facility] 1.114 350.1.13.10 4.2.7.2.686 [id number] [facility] 2022-05-11 09:30:00 2022-05-11 10:06:58 Outpatient R AURORA RENEE [facility] [id number] [facility] 2022-05-11 09:30:00 2022-05-11 10:06:58 Office Visit Víctor [facility] 1.114 350.1.13.10 4.2.7.2.686 [id number] [facility] 2022-05-08 10:00:00 2022-05-08 10:00:00 Outpatient R AURORA RENEE [facility] [id number] [facility] 2022-04-29 00:00:00 2022-04-29 00:00:00 [facility] 1.114 350.1.13.10 4.2.7.2.686 [id number] [facility] 2022-02-28 00:00:00 2022-02-28 00:00:00 Telephone Carmen Arriaga [facility] [id number] 350.1.13.10 4.2.7.2.686 [id number] [facility] 2022-02-25 00:00:00 2022-02-25 00:00:00 Refill April Carmen Kent [facility] 1.114 350.1.13.10 4.2.7.2.686 [id number] [facility] 2022-02-23 00:00:00 2022-02-23 00:00:00 Patient Secure Msg Doctor Unassigned, [place] [facility] 1.114 350.1.13.10 4.2.7.2.686 [id number] [facility] [facility] 2022-02-12 08:00:00 2022-02-12 08:15:00 Laser/Electro Optics Technician Visit Lab, Ang - Carmen Pascal Donte [facility] 1.114 350.1.13.10 4.2.7.2.686 [id number] [facility] 2022-02-12 07:00:00 2022-02-12 07:40:58 Outpatient R CARMEN ARRIAGA [facility] [id number] [facility] 2022-02-12 07:00:00 2022-02-12 07:40:58 Office Visit April Carmen Kent [facility] 1.114 350.1.13.10 4.2.7.2.686 [id number] [facility] 2021-12-14 00:00:00 2021-12-14 00:00:00 Telephone Aurora Renee [facility] 1.114 350.1.13.10 4.2.7.2.686 [id number] [facility] 2021-12-10 10:30:00 2021-12-10 10:30:00 Outpatient R AURORA RENEE [facility] [id number] [facility] 2021-11-17 00:00:00 2021-11-17 00:00:00 Patient Secure Msg Doctor Unassigned, Mariposa [facility] 1.840.114 350.1.13.10 4.2.7.2.686 [id number] [facility] 2021-11-15 00:00:00 2021-11-15 00:00:00 Patient Secure Msg Doctor Unassigned, Mariposa [facility] 1.840.114 350.1.13.10 4.2.7.2.686 [id number] [facility] 2021-11-12 10:00:00 2021-11-12 10:30:56 Outpatient R AURORA RENEE [facility] [id number] [facility] 2021-11-12 10:00:00 2021-11-12 10:30:56 Office Visit Aurora Renee [facility] 1.840.114 350.1.13.10 4.2.7.2.686 [id number] [facility] 2021-11-12 10:00:00 2021-11-12 10:00:00 Outpatient R AURORA RENEE [facility] [id number] [facility] 2021-11-12 10:00:00 2021-11-12 10:00:00 Outpatient R VÍCTOR AURORA [facility] [id number] [facility] 2021-11-10 09:45:00 2021-11-10 10:00:00 Laser/Electro Optics Technician Visit Pob, Adc Lab Main Víctor [facility] 1.840.114 350.1.13.10 4.2.7.2.686 [id number] [facility] 2021-11-10 09:45:00 2021-11-10 09:45:00 Outpatient R AURORA RENEE [facility] [id number] [facility] 2021-11-05 00:00:00 2021-11-05 00:00:00 Telephone uArora Renee [facility] 1.840.114 350.1.13.10 4.2.7.2.686 [id number] [facility] 2021-11-04 00:00:00 2021-11-04 00:00:00 Telephone Armaan [facility] 1.2840.114 350.1.13.10 4.2.7.2.686 [id number] [facility] 2021-11-03 15:38:02 2021-11-03 23:59:00 Outpatient R ARMAAN [facility] [id number] [facility] 2021-11-03 15:38:02 2021-11-03 23:59:00 Hospital [facility] 1.2840.114 350.1.13.10 4.2.7.2.686 [id number] [facility] 2021-10-29 10:00:00 2021-10-29 23:59:00 Hospital Encounter [facility] 1.2840.114 350.1.13.10 4.2.7.2.686 [id number] [facility] 2021-10-29 00:00:00 2021-10-29 23:59:00 Outpatient R [facility]AN [facility] [id number] [facility] 2021-10-20 10:30:00 2021-10-20 11:12:46 Outpatient R VIKASH MOONEY [facility] [id number] [facility] 2021-10-20 10:30:00 2021-10-20 11:12:46 Office Visit [facility] 1.840.114 350.1.13.10 4.2.7.2.686 [id number] [facility] 2021-10-17 00:00:00 2021-10-17 00:00:00 Orders Only Doctor Unassigned, Mariposa [facility] 1.84.114 350.1.13.10 4.2.7.2.686 [id number] [facility] 2021-10-16 11:30:00 2021-10-16 23:59:00 Outpatient R CARMEN ARRIAGA [facility] [id number] [facility] 2021-10-16 10:30:00 2021-10-16 11:35:27 Outpatient R CARMEN ARRIAGA [facility] [id number] [facility] 2021-10-16 10:30:00 2021-10-16 11:35:27 Office Visit Carmen Arriaga [facility] 1.840.114 350.1.13.10 4.2.7.2.686 [id number] [facility] 2021-10-16 10:30:00 2021-10-16 11:35:27 Outpatient R CARMEN ARRIAGA [facility] [id number] [facility] 2021-10-16 11:00:00 2021-10-16 11:15:00 Laser/Electro Optics Technician Visit Lab, Carmen Alford [facility] 1..840.114 350.1.13.10 4.2.7.2.686 [id number] [facility] 2021-10-16 00:00:00 2021-10-16 00:00:00 Orders Only Doctor Unassigned, Mariposa [facility] 1.2.840.114 350.1.13.10 4.2.7.2.686 [id number] [facility] 2021-10-08 00:00:00 2021-10-08 00:00:00 Telephone April Carmen Kent [facility] BU[facility] 1.2.840.114 350.1.13.10 4.2.7.2.686 [id number] [facility] 2021-09-30 00:00:00 2021-09-30 00:00:00 Refill April Carmen Kent [facility] OFF[facility] BUILD[facility] 1.2.840.114 350.1.13.10 4.2.7.2.686 [id number] [facility] 2021-08-07 17:00:00 2021-08-07 17:00:00 Outpatient NICK CLEMENTS [facility] [id number] [facility] 2021-05-01 15:00:00 2021-05-01 15:00:00 Outpatient LIZZIE MEREDITH [facility] [id number] [facility] 2021-04-21 10:00:00 2021-04-21 10:00:00 Outpatient AURORA CARTY [facility] [id number] [facility] 2021-04-21 10:00:00 2021-04-21 10:00:00 Outpatient AURORA CARTY [facility] [id number] [facility] 2021-04-16 11:00:00 2021-04-16 11:00:00 Outpatient AURORA CARTY [facility] [id number] [facility] 2021-04-16 11:00:00 2021-04-16 11:00:00 Outpatient AURORA CARTY [facility] [id number] [facility] 2021-04-11 00:00:00 2021-04-11 00:00:00 Telephone Aurora Renee [facility] 1.840.114 350.1.13.10 4.2.7.2.686 [id number] [facility] 2021-04-03 14:45:00 2021-04-03 14:45:00 Outpatient LIZZIE MEREDITH [facility] [id number] [facility] 2021-03-20 00:00:00 2021-03-20 00:00:00 Refill Carmen Arriaga Donte [facility] OFFICE BUILDING ONE 1..114 350.1.13.10 4.2.7.2.686 [id number] [facility] 2021-03-04 00:00:00 2021-03-04 00:00:00 Refill Chaparro [facility] OFFICE BUILDING ONE 1.840.114 350.1.13.10 4.2.7.2.686 [id number] [facility] 2021-03-04 00:00:00 2021-03-04 00:00:00 Refill Carmen Arriaga [facility] OFFICE BUILDING ONE 1.840.114 350.1.13.10 4.2.7.2.686 [id number] [facility] 2021-03-04 00:00:00 2021-03-04 00:00:00 Refill [place], [facility] OFFICE BUILDING ONE 1.0.114 350.1.13.10 4.2.7.2.686 [id number] [facility] 2021-03-03 15:30:00 2021-03-03 15:59:16 Office Visit Víctor, [facility] 1.114 350.1.13.10 4.2.7.2.686 [id number] [facility] 2021-03-03 15:30:00 2021-03-03 15:59:16 Outpatient Donnie RENEEAURORA [facility] [id number] [facility] 2021-03-03 15:30:00 2021-03-03 15:30:00 Outpatient R VÍCTRO [facility] [id number] [facility] 2021-02-28 13:00:00 2021-02-28 13:00:00 [id number] 2021-02-28 13:00:00 2021-02-28 11:36:50 [facility] [id number] [facility] 2021-02-28 11:36:42 2021-02-28 11:36:50 Imm/Inj Visit Nurse, Adc Pob Immunizatio Salbador Espinal [facility] 1.840.114 350.1.13.10 4.2.7.2.686 [id number] [facility] 2021-02-28 11:19:02 2021-02-28 11:34:02 Laser/Electro Optics Technician Visit Pob, Adc Lab Main Víctor [facility] 1.840.114 350.1.13.10 4.2.7.2.686 [id number] [facility] 2021-02-28 11:00:00 2021-02-28 11:00:00 Outpatient Donnie RENEE [facility] [id number] [facility] 2021-01-23 00:00:00 2021-01-23 00:00:00 Telephone Víctor Aurora [facility] IALTY [facility] 1.114 350.1.13.10 4.2.7.2.686 [id number] [facility] 2020-12-16 15:30:00 2020-12-16 15:30:00 Outpatient Donnie MARRMERLYN BEGUM [facility] [id number] [facility] 2020-12-16 15:30:00 2020-12-16 15:30:00 Outpatient R JAIDEN MERLYN [facility] [id number] [facility] 2020-12-12 00:00:00 2020-12-12 00:00:00 Ronny Gonsalez [facility] Office Building One 1..114 350.1.13.10 4.2.7.2.686 [id number] [facility] 2020-12-03 15:30:00 2020-12-03 15:30:00 Outpatient SHERLEY DUFFY [facility] [id number] [facility] 2020-11-27 08:30:00 2020-11-27 10:22:25 Outpatient CARMEN AL [facility] [id number] [facility] 2020-11-27 08:34:29 2020-11-27 08:49:29 Laser/Electro Optics Technician Visit Lab, Ang - Carmen Pascal [facility] Bipin?[facility] 1.840.114 350.1.13.10 4.2.7.2.686 [id number] [facility] 2020-11-27 08:30:00 2020-11-27 08:30:00 Outpatient CARMEN AL [facility] [id number] [facility] 2020-11-22 00:00:00 2020-11-22 00:00:00 Telephone Sherley Cameron [facility] 1..114 350.1.13.10 4.2.7.2.686 [id number] [facility] 2020-11-05 00:00:00 2020-11-05 00:00:00 [facility] One 1.840.114 350.1.13.10 4.2.7.2.686 [id number] [facility] 2020-10-23 10:08:28 2020-10-23 10:28:28 Laser/Electro Optics Technician Visit Lab, [facility] Pob I Carmen [facility] Office Building One .840.114 350.1.13.10 4.2.7.2.686 [id number] [facility] 2020-10-23 09:21:52 2020-10-23 10:08:41 Office Visit Carmen [facility] Office Building One 1.840.114 350.1.13.10 4.2.7.2.686 [id number] [facility] 2020-10-23 09:30:00 2020-10-23 09:30:00 Outpatient CARMEN AL [facility] [id number] [facility] 2020-10-23 00:00:00 2020-10-23 00:00:00 Refill Carmen [facility] Office Building One .840.114 350.1.13.10 4.2.7.2.686 [id number] [facility] 2020-10-02 16:00:00 2020-10-02 16:00:00 Outpatient R CARMEN ARRIAGA [facility] [id number] [facility] 2020-10-02 00:00:00 2020-10-02 00:00:00 Refill Carmen [facility] Office Building One 1.2.840.114 350.1.13.10 4.2.7.2.686 [id number] [facility] 2020-09-02 00:00:00 2020-09-02 00:00:00 Refill Carmen [facility] Office Building One 1.2.840.114 350.1.13.10 4.2.7.2.686 [id number] [facility] 2020-08-07 00:00:00 2020-08-07 00:00:00 Telephone Carmen [facility] Office Building One 1.2840.114 350.1.13.10 4.2.7.2.686 [id number] [facility] 2020-07-31 14:07:43 2020-07-31 14:37:43 Office Visit Sarah Light [facility] 1.2.840.114 350.1.13.10 4.2.7.2.686 [id number] [facility] 2020-07-31 09:38:57 2020-07-31 10:23:57 Ancillary Visit 2, [employer] Erika Sun [facility] 1.2.840.114 350.1.13.10 4.2.7.2.686 [id number] [facility] 2020-07-31 09:45:00 2020-07-31 09:45:00 Outpatient R ERIKA SUN [facility] [id number] [facility] 2020-07-24 10:13:17 2020-07-24 23:59:00 Hospital Encounter Carmen Arriaga [facility] 1.2.840.114 350.1.13.10 4.2.7.2.686 [id number] [facility] 2020-07-24 00:00:00 2020-07-24 00:00:00 Outpatient R CARMEN ARRIAGA [facility] [id number] [facility] 2020-07-23 00:00:00 2020-07-23 00:00:00 RefRonny [facility] Office Building One 1.840.114 350.1.13.10 4.2.7.2.686 [id number] [facility] 2020 00:00:00 2020 00:00:00 Telephone Carmen [facility] Office Building One 1.84.114 350.1.13.10 4.2.7.2.686 [id number] [facility] 2020-07-09 07:53:47 2020-07-09 08:13:47 Laser/Electro Optics Technician Visit Lab, [facility] Pob I Carmen [facility] Office Building One 1.84.114 350.1.13.10 4.2.7.2.686 [id number] [facility] 2020-07-09 08:00:00 2020-07-09 08:00:00 Outpatient R [facility] [id number] [facility] 2020-07-05 14:14:49 2020-07-05 15:14:06 Office Visit Carmen [facility] Office Building One 1.84.114 350.1.13.10 4.2.7.2.686 [id number] [facility] 2020-07-05 09:30:00 2020-07-05 09:30:00 Outpatient R MIRLANDE LAGUNA [facility] [id number] [facility] 2020-07-04 09:00:00 2020-07-04 09:00:00 Outpatient R HENRIETTA COBB [facility] [id number] [facility] 2020-07-01 00:00:00 2020-07-01 00:00:00 Refill Chaparro [facility] Office Building One ..114 350.1.13.10 4.2.7.2.686 [id number] [facility] 2020-06-21 09:00:00 2020-06-21 09:00:00 Outpatient R APRILCARMEN [facility] [id number] [facility] 2020-06-14 14:00:00 2020-06-14 14:00:00 Outpatient R CARMEN ARRIAGA [facility] [id number] [facility] 2020-06-14 09:30:00 2020-06-14 09:30:00 Outpatient R MIRLANDE LAGUNA [facility] [id number] [facility] 2020-06-06 00:00:00 2020-06-06 00:00:00 Refill Carmen [facility] Office Building One ..114 350.1.13.10 4.2.7.2.686 [id number] [facility] 2020-05-27 00:00:00 2020-05-27 00:00:00 Refill AprilCarmen [facility] Office Building One ..114 350.1.13.10 4.2.7.2.686 [id number] [facility] 2020-05-03 00:00:00 2020-05-03 00:00:00 Refill Chaparro [facility] Office Building One ..114 350.1.13.10 4.2.7.2.686 [id number] [facility] 2020-04-29 00:00:00 2020-04-29 00:00:00 Refill Carmen [facility] Office Building One 1.0.114 350.1.13.10 4.2.7.2.686 [id number] [facility] 2020-04-01 00:00:00 2020-04-01 00:00:00 Refill [facility] Office Building One 1.0.114 350.1.13.10 4.2.7.2.686 [id number] [id number] [facility] 2020-03-11 00:00:00 2020-03-11 00:00:00 Refill Carmen [facility] Office Building One 1.840.114 350.1.13.10 4.2.7.2.686 [id number] [facility] 2020-03-11 00:00:00 2020-03-11 00:00:00 Telephone Carmen [facility] Office Building One 1.0.114 350.1.13.10 4.2.7.2.686 [id number] [id number] [facility] 2020-02-28 00:00:00 2020-02-28 00:00:00 Refill Ronny [facility] Office Building One 1.0.114 350.1.13.10 4.2.7.2.686 [id number] [id number] [facility] 2020-02-08 16:14:34 2020-02-08 16:34:34 Laser/Electro Optics Technician Visit Lab, Adc [facility] Office Building One 1..114 350.1.13.10 4.2.7.2.686 [id number] [facility] 2020-02-08 15:22:43 2020-02-08 16:22:23 Office Visit [facility]ietta [facility] Office Building One 1.0.114 350.1.13.10 4.2.7.2.686 [id number] [facility] 2020-02-08 15:30:00 2020-02-08 15:30:00 Outpatient R HENRIETTA COBB [facility] [id number] [facility] 2020-01-31 00:00:00 2020-01-31 00:00:00 [facility] 1.0.114 350.1.13.10 4.2.7.2.686 [id number] [facility] 2019-12-29 00:00:00 2019-12-29 00:00:00 Refill Ronny [facility] Office Building One 1..114 350.1.13.10 4.2.7.2.686 [id number] [facility] 2019-11-06 00:00:00 2019-11-06 00:00:00 Refill Carmen [facility] Office Building One 1..114 350.1.13.10 4.2.7.2.686 [id number] [id number] [facility] 2019-10-02 00:00:00 2019-10-02 00:00:00 Refill Carmen [facility] Office Building One 1..114 350.1.13.10 4.2.7.2.686 [id number] [facility] 2019-10-02 00:00:00 2019-10-02 00:00:00 Telephone Juvenal [facility]ie [facility] Office Building One 1..114 350.1.13.10 4.2.7.2.686 [id number] [facility] 2019-06-06 00:00:00 2019-06-06 00:00:00 Telephone Carmen [facility] Office Building One 1.0.114 350.1.13.10 4.2.7.2.686 [id number] [id number] [facility] 2019-05-31 00:00:00 2019-05-31 00:00:00 Telephone Carmen [facility] Office Building One 1..114 350.1.13.10 4.2.7.2.686 [id number] [facility] 2019-05-25 08:40:32 2019-05-25 09:46:55 Office Visit Carmen [facility] Office Building One 1..114 350.1.13.10 4.2.7.2.686 [id number] [facility] 2019-05-25 09:00:00 2019-05-25 09:00:00 Outpatient R CARMEN ARRIAGA [facility] [id number] [facility] 2019-05-10 00:00:00 2019-05-10 00:00:00 Refill Carmen [facility] Office Building One 1..114 350.1.13.10 4.2.7.2.686 [id number] [id number] [facility] 2019-04-18 00:00:00 2019-04-18 00:00:00 Refill Carmen [facility] Office Building One 1..114 350.1.13.10 4.2.7.2.686 [id number] [facility] 2019-04-13 00:00:00 2019-04-13 00:00:00 Telephone Carmen [facility] Office Building One 1.2.840.114 350.1.13.10 4.2.7.2.686 [id number] [facility] 2019-04-10 00:00:00 2019-04-10 00:00:00 Refill Carmen [facility] One 1.2.840.114 350.1.13.10 4.2.7.2.686 [id number] 044 [id number] [facility] Results Test Description Test Time Test Comments Results Result Co mments [facility] [id number] 15:14:00 * Test Item Value Reference Range Interpretation Comme nts POCT U SP GRAV (test code = 3255) 1.020 mg/dl 1.005-1.025 POCT PH U (test code = 3254) 7.0 mg/dl 5-8 POCT U LEUK EST (test code = 3263) Negative Negative - Negative POCT U NIT (test code = 3262) Negative Negative - Negati ve POCT U PROT (test code = 3259) Negative Negative - Negative POCT U GLU (test code = 3256) Negative Negative - Negati ve POCT U KETONE (test code = 3258) Negative Negative - Negative POCT U UROBILI (test code = 3260) 0.2 mg/dl 0.2-1 POCT U BILI (test code = 3261) Negative Negative - Negative POCT U BLD (test code = 3257) Negative Negative - Negati ve POCT U COLOR (test code = 3266) Yellow POCT U APPEAR (test code = 3267) Clear [facility] Notes Date/Time Note Provider Source 2022-11-25 13:28:50 xxDcG+Tgv3Bb53rXqUif N2CpjiR7Vat 2udhE+z9lFL8L/wnMQsqNUrMdDmbI42 fv2795-26-55R87:28:50 Attempt # 1 No answer at this time. Message left for patient to return my call if he has any questions. I was calling to notify the patient their is no message in the chart that I can find. 19045-4Gkwaxeiie encounter SwoiCE3709-66-45B06:31:36Teleph one encounter NoteTXT1.2.840.177548.1.13.104. 2.7.2.590622|[id number] ble for patient bviq63800-1PvejHE723520234Jkany turner Abreu [address]TX[address] 56835NDAVVDFKOUHVYTXJPFKKAF2231 -08-30T13:31:361.2.840.448760.1 .72.3.15|1.2.840.130363.1.13.10 4.2.7.2.727879_[id number] Debbie Abreu [facility] 2022-11-25 09:35:14 +qcnBjDv9ALkkQYkNB0a X8CSf7uKu7g GGHNJk0E8wMl47w57zoYGcC3xqPGqv+ kF8473-00-75U16:35:14 Jovan Fine is a 57 year old malePt is returning call to speak with MONA Renee, Pt states, he missed a call from someone in Nephrology clinic, Please advise 90800-4Lsokosvvf encounter IebdPI1308-03-13U21:36:43Teleph one encounter NoteTXT1.2.840.516757.1.13.104. 2.7.2.191179|[id number] ble for patient puxi14962-9AnkvEY876222118Kszzn y N [address]TX[address] 33686RHWFFGPPYITBYMUXSETUYT0397 -08-30T09:36:431.2.840.320272.1 .72.3.15|1.2.840.336838.1.13.10 4.2.7.2.727879_[id number] Bibi Hobbs [facility] 2022-11-25 09:04:34 9mN2gWjtODqPWvl+PX6i etatg9dJmH9 kpqqWA1gSlhbSxIuRr4FAqFLyA9yPpU aF8610-09-90C36:04:34 Jovan Fine is a 57 year old male Pt is calling again stating that his sister received a missed call regarding him from someone in clinic. There is no documentation of the call. Please call patient. Ttfwnhxyujtlwn signed by Ursula Yo at 11/25/2022 9:07 AM QYO25541-6Aksillmbs encounter YtmcKC2629-18-51K79:07:17Teleph one encounter NoteTXT1.2.840.951646.1.13.104. 2.7.2.595202|[id number] ble for patient fskm87394-3ZawjUK132584837Owixw n T [address] TfobEobtvgdwmFxgnrwtiqHPCJ37513 79073FCUPJAAEMWOSPRXXWAGWGB4584 -08-30T09:07:171.2.840.899158.1 .72.3.15|1.2.840.533619.1.13.10 4.2.7.2.727879_[id number] Ursula Yo [facility] 2022-11-24 13:47:02 YeMT4hVXuqoLaFwDqyYR T9iZ9NGpRKj JphPId+G9dZHHCXlX1WjWZ74Mmnnl0Y Pw5367-18-10B98:47:02 Jovan Fine is a 57 year old malePt is calling stating he received a missed call but is not sure from who; pt states he believe it was nephrology provider. No notes in chart. Please advise. . [phone] signed by Cecilia Toscano at 11/24/2022 1:49 PM ZED15770-2Xemprqpja encounter OdmdDU7765-09-74N02:49:35Teleph one encounter NoteTXT1.2.840.725965.1.13.104. 2.7.2.849293|[id number] ble for patient exxn78589-7OdzsKU229776245Owbsh agustin Toscano[address] 51328VEJCPBUNZRKUVMPWHEBJFV8584 -08-29T13:49:351.2.840.300715.1 .72.3.15|1.2.840.138605.1.13.10 4.2.7.2.727879_[id number] Cecilia Toscano [facility] 2022-11-23 09:13:52 751uK+PRit6liufXEaQ7 DFAldLXW5wK lagBhljicrEoWHy37249y+JMB7k8q5Z +67651-62-93A15:13:52 Patient is requesting a refill.He wants it sent to [facility] in [place]. 27357-6Dgigxvxzx encounter ZjzqXY8078-16-95M34:17:12Teleph one encounter NoteTXT1.2.840.929339.1.13.104. 2.7.2.025246|[id number] ble for patient ewfk40346-9MnjvXWNJCKEFBA[address] 46705ZJXJUJOKDOOSDDAFSMUPIB6910 -08-28T09:17:121.2.840.080214.1 .72.3.15|1.2.840.372040.1.13.10 4.2.7.2.727879_[id number] [facility] 2022-11-13 12:44:12 co9kJm0FZxTsJoFdeTjf KPYoTkU1liE pF8VmjYAo+/5qMux3zeAu+hmnc0VjRo wt4668-69-47M48:44:12 Requested Prescriptions Pending Prescriptions Disp Refills HYDROCHLOROTHIAZIDE 25 mg tablet [Pharmacy Med Name: HYDROCHLOROTHIAZIDE 25MG TABLETS] 45 tablet Sig: TAKE 1 TABLET BY MOUTH EVERY MORNING There is no refill protocol information for this order Recent VisitsDate Type Provider Dept 05/11/22 Office Visit Aurora Renee AGNP [facility] Nephrology Showing recent visits within past 365 days and meeting all other requirementsFuture AppointmentsNo visits were found meeting these conditions.Showing future appointments within next 365 days and meeting all other requirements No visits with results within 6 Month(s) from this visit. Latest known visit with results is: Office Visit on 05/11/2022 Component Date Value APPEARANCE 05/11/2022 Clear COLOR 05/11/2022 Straw (A) PH 05/11/2022 5.0 SP GRAVITY 05/11/2022 1.008 GLU U QUAL 05/11/2022 Normal BLOOD 05/11/2022 Negative KETONES 05/11/2022 Negative PROTEIN 05/11/2022 Negative UROBILIN 05/11/2022 Normal BILIRUBIN 05/11/2022 Negative NITRITE 05/11/2022 Negative LEUK CHARMAINE 05/11/2022 Negative RBC/HPF 05/11/2022 1 WBC/HPF 05/11/2022 <1 BACTERIA 05/11/2022 Negative T. PROT U 05/11/2022 13 CREAT U 05/11/2022 47.2 Protein/Creatinine Ratio* 05/11/2022 0.3 ICD-10-CM 1. Chronic kidney disease (CKD) stage G3a/A1, moderately decreased glomerular filtration rate (GFR) between 45-59 mL/min/1.73 square meter and albuminuria creatinine ratio less than 30 mg/g N18.31 Notes from last office visit:HypertensionComment: BP elevated above goalPlan: Resume HCTZ 25mg daily. Continue amlodipine 10mg daily. Nurse BP check and renal labs in two weeks. Medication last sent on: Refill sent to patient's preferred pharmacy; refilled based on current protocol and last office visit note.LEILA BUNCH MA 11/13/2022 12:44 PM [id number] encounter [id number] one encounter [id number] [facility] [id number] [id number] -[id number] [facility]"
--- NOTE | 2023-04-16 10:26 | RAD REPORT ---
EXAM DESCRIPTION: RAD - Hip Left 2 View - 04/16/2023 10:05 am CLINICAL HISTORY: Left hip pain status post injury FINDINGS: No fracture or dislocation is seen. If patient continues to have symptoms to suggest an occult fracture MRI would be recommended
--- NOTE | 2023-04-16 10:27 | RAD REPORT ---
EXAM DESCRIPTION: RAD - Femur Left - 04/16/2023 10:04 am CLINICAL HISTORY: Left leg pain FINDINGS: No fracture seen
--- NOTE | 2023-04-16 10:27 | RAD REPORT ---
EXAM DESCRIPTION: RAD - Knee Left 3 View - 04/16/2023 10:05 am CLINICAL HISTORY: Left knee pain FINDINGS: No fracture or dislocation is seen. Mild osteoarthritis medial compartment
--- NOTE | 2023-04-16 10:28 | RAD REPORT ---
EXAM DESCRIPTION: Komal Spears Left04/16/2023 10:05 am CLINICAL HISTORY: Left leg pain status post injury FINDINGS: No fracture is seen
--- NOTE | 2023-04-16 10:32 | EDPHYS ---
Physician Documentation [facility] Name: Jovan Fine Age: 57 yrs Sex: Male : 1965 Arrival Date: 04/16/2023 Time: 09:01 Bed IW10 Private MD: ED Physician Jose Paulino HPI: 04/16 09:15 This 57 yrs old Male presents to ER via Unassigned with complaints of Fall ec2 Injury, Leg Pain. 09:15 Patient arrives today for evaluation of left leg pain. States that he was coming down a ec2 ladder and subsequently fell and landed on his left leg. Patient reports no head or neck pain, denies any back pain. States that he has been ambulatory with pain. Reports no other complaints.. Historical: - Allergies: 09:17 Morphine; hb - PMHx: 09:17 hypertension; hb - PSHx: 09:17 None; hb - Immunization history:: Adult Immunizations up to date. - Social history:: Smoking status: Patient denies any tobacco usage or history of. ROS: 09:15 Constitutional: as per hpi ec2 Exam: 09:15 Constitutional: GEN: NAD Head: atraumatic Eyes: EOMI Ears: External ears are ec2 normal. CV: regular rate LUNGS: no respiratory distress ABD: non-distended SKIN: no evidence of rashes MSK: TTP to the left femur and anterior tib-fib, range of motion limited due to discomfort, no obvious deformity, no ecchymosis appreciated. NEURO: moves all extremities equally Vital Signs: 09:16 BP 155 / 99; Pulse 76; Resp 16; Temp 98.1(O); Pulse Ox 99% on R/A; Weight 82.1 kg (M); hb Height 5 ft. 8 in. ; Pain 7/10; 10:25 BP 136 / 86; Pulse 69; Resp 18; Pulse Ox 98% ; nj1 09:16 Body Mass Index 27.52 (82.10 kg, 172.72 cm) hb 09:16 Pain Scale: Adult hb MDM: 09:06 Patient medically screened. ec2 09:15 Data reviewed: vital signs. ED course: Patient arrives today for evaluation of left leg ec2 pain. Examination remarkable for MSK findings as noted above. Will obtain radiographs of the left lower extremity and reassess. Suspect muscular pain causing his symptoms, lower suspicion for fracture, low suspicion for ligamentous injury.. 10:30 ED course: Radiographs of the hip and left lower extremity show no acute traumatic ec2 pathology. Will discharge home, suspect muscular strain causing symptoms. Return precautions given . 04/16 09:15 Order name: Femur Left XRAY; Complete Time: 10:30 ec2 04/16 09:15 Order name: Knee Left 3 View XRAY; Complete Time: 10:30 ec2 04/16 09:15 Order name: Tib Fib Left XRAY; Complete Time: 10:30 ec2 04/16 10:02 Order name: Hip Left 2 View; Complete Time: 10:30 EDMS Administered Medications: 09:43 Drug: Methocarbamol PO 750 mg PO once Route: PO; nj1 10:35 Follow up: Response: No adverse reaction; Pain is decreased nj1 09:43 Drug: Ketorolac IM 30 mg IM once Route: IM; Site: right deltoid; nj1 10:35 Follow up: Response: No adverse reaction; Pain is decreased nj1 Disposition Summary: 04/16/23 10:32 Discharge Ordered Notes: Location: Home ec2 Condition: Stable ec2 Diagnosis - Pain in left leg ec2 Followup: ec2 - With: Private Physician - When: - Reason: Recheck today's complaints Discharge Instructions: - Discharge Summary Sheet ec2 - Musculoskeletal Pain ec2 Forms: - Medication Reconciliation Form ec2 - Thank You Letter ec2 - Antibiotic Education ec2 - Prescription Opioid Use ec2 - Patient Portal Instructions ec2 - Leadership Thank You Letter ec2 Prescriptions: - methocarbamol 500 mg Oral tablet - take 2 tablets ORAL route 4 times per day; 30 tablet; Refills: 0, Product ec2 Selection Permitted Signatures: Dispatcher [employer] EDMS uJdy Strickland RN RN Marisel Sanchez RN RN nj1 Jose Paulino MD MD ec2 Corrections: (The following items were deleted from the chart) 09:18 09:17 Allergies: No Known Allergies; hb hb 10:02 09:16 Hip Left 1 View+RAD.RAD.BRZ ordered. EDMS EDMS
--- NOTE | 2023-04-16 10:32 | ER ---
Nurse's Notes [facility] Name: Jovan Fine Age: 57 yrs Sex: Male : 1965 Arrival Date: 04/16/2023 Time: 09:01 Bed IW10 Private MD: Diagnosis: Pain in left leg Presentation: 04/16 09:16 Chief complaint: Left leg pain after slipped from 4th rung on ladder yesterday. Denies hb other injuries, negative LOC. Coronavirus screen: At this time, the client does not indicate any symptoms associated with coronavirus-19. Ebola Screen: No symptoms or risks identified at this time. Initial Sepsis Screen: Does the patient meet any 2 criteria? No. Patient's initial sepsis screen is negative. Does the patient have a suspected source of infection? No. Patient's initial sepsis screen is negative. Risk Assessment: Do you want to hurt yourself or someone else? Patient reports no desire to harm self or others. Onset of symptoms was April 15, 2023. 09:16 Method Of Arrival: Ambulatory hb 09:16 Acuity: CLARY 4 hb Historical: - Allergies: 09:17 Morphine; hb - PMHx: 09:17 hypertension; hb - PSHx: 09:17 None; hb - Immunization history:: Adult Immunizations up to date. - Social history:: Smoking status: Patient denies any tobacco usage or history of. Screenin:38 [facility] ED Fall Risk Assessment (Adult) Score/Fall Risk Level 0 - 2 = Low Risk nj1 Oriented to surroundings, Maintained a safe environment, Hourly rounding (assess needs \T\ fall precautionary measures) done. Abuse screen: Denies threats or abuse. Denies injuries from another. Nutritional screening: No deficits noted. Tuberculosis screening: No symptoms or risk factors identified. Assessment: 09:10 General: Appears in no apparent distress. uncomfortable, Behavior is calm, cooperative, nj1 appropriate for age. Pain: Complains of pain in posterior aspect of left knee Pain currently is 8 out of 10 on a pain scale. Neuro: Level of Consciousness is awake, alert, obeys commands, Oriented to person, place, time, situation. Cardiovascular: Patient's skin is warm and dry. Respiratory: Airway is patent Respiratory effort is even, unlabored. Musculoskeletal: Reports pain in posterior aspect of left knee. 10:30 Reassessment: Patient appears in no apparent distress at this time. Patient is alert, nj1 oriented x 3, equal unlabored respirations, skin warm/dry/pink. Patient states feeling better. Patient states symptoms have improved. Vital Signs: 09:16 BP 155 / 99; Pulse 76; Resp 16; Temp 98.1(O); Pulse Ox 99% on R/A; Weight 82.1 kg (M); hb Height 5 ft. 8 in. ; Pain 7/10; 10:25 BP 136 / 86; Pulse 69; Resp 18; Pulse Ox 98% ; nj1 09:16 Body Mass Index 27.52 (82.10 kg, 172.72 cm) hb 09:16 Pain Scale: Adult hb ED Course: 09:06 Patient arrived in ED. mg5 09:06 Jose Paulino MD is Attending Physician. ec2 09:12 Marisel Sanchez, DHRUV is Primary Nurse. nj1 09:17 Triage completed. hb 09:18 Arm band placed on. hb 09:38 Patient has correct armband on for positive identification. Bed in low position. Call nj1 light in reach. Adult w/ patient. Provided Education on: call light, fall precautions. 10:02 Femur Left XRAY In Process Unspecified. EDMS 10:02 Knee Left 3 View XRAY In Process Unspecified. EDMS 10:02 Tib Fib Left XRAY In Process Unspecified. EDMS 10:02 Hip Left 2 View In Process Unspecified. EDMS 10:35 No provider procedures requiring assistance completed. Patient did not have IV access nj1 during this emergency room visit. Administered Medications: 09:43 Drug: Methocarbamol PO 750 mg PO once Route: PO; nj1 10:35 Follow up: Response: No adverse reaction; Pain is decreased nj1 09:43 Drug: Ketorolac IM 30 mg IM once Route: IM; Site: right deltoid; nj1 10:35 Follow up: Response: No adverse reaction; Pain is decreased nj1 Medication: 10:47 VIS not applicable for this client. nj1 Outcome: 10:32 Discharge ordered by . ec2 10:35 Discharged to home ambulatory, nj1 10:35 Condition: stable 10:35 Discharge instructions given to patient, Instructed on discharge instructions, follow up and referral plans. medication usage, Demonstrated understanding of instructions, follow-up care, medications, Prescriptions given X 1, 10:40 Patient left the ED. nj1 Signatures: Dispatcher [employer] Judy Nuñez RN RN Marisel Sanchez RN RN nj1 Diana Garrido mg5 Jose Paulino MD MD ec2 Corrections: (The following items were deleted from the chart) 09:18 09:17 Allergies: No Known Allergies; hb hb 10:48 10:48 Patient left the ED. nj1 nj1
[2023-04-16 14:07] VITALS: BP 136/86; TEMP 98.1; O2SAT 98
== END ==
LOC: ER 09:01
DX: M79.605 Pain in left leg (principal); I10 Essential (primary) hypertension; Z88.5 Allergy status to narcotic agent
CPT/HCPCS: 96372; 99284